=== PATIENT | male | born 1990 | race African-American/Black ===

== ENCOUNTER 2021-01-11 11:07 | Emergency (ER) | payer MEDICAID ==
[~2021-01-11] VITALS: Ht 175.3 cm; Wt 95.7 kg
[2021-01-11 11:07] VITALS: BP 133/93
[2021-01-11] MEDS ORDERED: diphenhdrAMINE HCL 50 MG/1 ML VL IM ONE (12:30)
[2021-01-11] MEDS ORDERED: methylPREDNISolone SOD SUCC 125 MG/2 ML VL IM ONE (12:30)
== END 2021-01-11 13:03 | disposition home or self-care (01) ==
LOC: ER 11:07
DX: S01.511A Laceration without foreign body of lip, initial encounter (principal); T78.40XA Allergy, unspecified, initial encounter; J44.9 Chronic obstructive pulmonary disease, unspecified; Z88.1 Allergy status to other antibiotic agents; W55.01XA Bitten by cat, initial encounter; Y93.89 Activity, other specified; Y92.89 Other specified places as the place of occurrence of the external cause; Y99.8 Other external cause status
CPT/HCPCS: 96372; 99284; J1200; J2930